=== PATIENT | male | born 1945 | race Caucasian/White ===

== ENCOUNTER 2017-02-11 17:47 | Emergency (ER) | payer MEDICARE ==
[~2017-02-11] VITALS: Ht 175.3 cm; Wt 100.7 kg
[2017-02-11] MEDS ORDERED: ZESTRIL40 MG PO (18:03)
[2017-02-11] MEDS ORDERED: HYDROCHLOROTH12.5 MG PO (18:03)
[2017-02-11] MEDS ORDERED: MULTIVITAMINS1 EAC7 PO (18:04)
[2017-02-11] MEDS ORDERED: ASPIR-LOW81 MG PO (18:04)
[2017-02-11] MEDS ORDERED: METHYLPREDNISOLO4 M1 PO (18:32)
[2017-02-11] MEDS ORDERED: NORCO 5-325 TA1 EACH PO (18:32)
== END 2017-02-11 18:54 | disposition home or self-care (01) ==
LOC: ED 17:47
DX: G57.61 Lesion of plantar nerve, right lower limb (principal); I10 Essential (primary) hypertension; Z86.73 Personal history of transient ischemic attack (TIA), and cerebral infarction without residual deficits; Z90.89 Acquired absence of other organs; Z88.1 Allergy status to other antibiotic agents; Z79.82 Long term (current) use of aspirin; Z79.899 Other long term (current) drug therapy
CPT/HCPCS: 73630; 99283